=== PATIENT | male | born 1970 | race Caucasian/White ===

== ENCOUNTER 2018-03-31 14:05 | Emergency (ER) | payer OTHER ==
[2018-03-31 14:14] VITALS: BP 144/91
--- NOTE | 2018-03-31 14:25 | UC ---
Eye Complaint HPI - HPI Summary HPI Summary: pt presents with c/o left eye pain, drainage and swelling that began this morning and has worsened over the last few hours. - History of Current Complaint Chief Complaint: UCEye Stated Complaint: EYE ISSUE Time Seen by Provider: 03/31/18 14:18 Hx Obtained From: Patient Onset/Duration: Gradual Onset Severity Initially: Mild Severity Currently: Mild Pain Intensity: 3 Character: Dull Aggravating Factor(s): Light Alleviating Factor(s): Nothing Associated Signs And Symptoms: Positive: Photophobia, Drainage (Clear), Drainage (Purulent), Swelling - Risk Factors Penetrating Injury Risk Factor: Negative Globe Rupture Risk Factors: Negative Acute Glaucoma Risk Factors: Eye Inflammation Optic Artery Occlusion Risk Factors: Negative - Allergies/Home Medications Allergies/Adverse Reactions: Allergies Allergy/AdvReac Type Severity Reaction Status Date / Time shrimp flavor Allergy Difficulty Uncoded 03/31/18 14:07 Swallowing Home Medications: Home Medications Lisinopril 40 mg PO DAILY 03/31/18 [History Confirmed 03/31/18] amLODIPine TAB* [Norvasc 5 mg TAB*] 10 mg PO DAILY 03/31/18 [History Confirmed 03/31/18] PMH/Surg Hx/FS Hx/Imm Hx Previously Healthy: Yes Other History Of: Negative For: Anticoagulant Therapy - Surgical History Surgical History: Yes Surgery Procedure, Year, and Place: RIGHT AC JOINT REPAIR 2009. OSIEL & PINS IN LEFT TIB/FIB 2011. DETACHED RETINA REPAIR LEFT EYE 2011 - ORBITS DONE 05/08/[address] ARRINGTON. LASER EYE SURG - Family History Known Family History: Positive: Cardiac Disease - Social History Occupation: Employed Full-time Lives: With Family Alcohol Use: Occasionally Alcohol Amount: SOCIALLY Substance Use Type: None Smoking Status (MU): Never Smoked Tobacco Have You Smoked in the Last Year: No When Did the Patient Quit Smoking/Using Tobacco: 1989 - Immunization History Most Recent Influenza Vaccination: 2009 Most Recent Tetanus Shot: 2007 Most Recent Pneumonia Vaccination: not use when Review of Systems Constitutional: Negative Skin: Negative Eyes: Drainage, Eye Redness, Photophobia ENT: Negative Respiratory: Negative Cardiovascular: Negative Gastrointestinal: Negative Genitourinary: Negative Motor: Negative Neurovascular: Negative Musculoskeletal: Negative Neurological: Negative Psychological: Negative Is Patient Immunocompromised?: No All Other Systems Reviewed And Are Negative: Yes Physical Exam Triage Information Reviewed: Yes Appearance: Well-Appearing Vital Signs: Initial Vital Signs Temp 98 F 03/31/18 14:07 Pulse 91 03/31/18 14:07 Resp 16 03/31/18 14:07 BP 144/91 03/31/18 14:07 Pulse Ox 100 03/31/18 14:07 Vital Signs Reviewed: Yes Eyes: Positive: Conjunctiva Inflamed, Discharge ENT Exam: Normal Dental Exam: Normal Neck exam: Normal Respiratory: Positive: No respiratory distress Musculoskeletal Exam: Normal Neurological Exam: Normal Psychological Exam: Normal Skin Exam: Normal Eye Complaint Course/Dx - Differential Dx/Diagnosis Differential Diagnosis/HQI/PQRI: Conjunctivitis, Glaucoma Provider Diagnoses: conjunctivitis left eye Discharge - Sign-Out/Discharge Documenting (check all that apply): Patient Departure All imaging exams completed and their final reports reviewed: No Studies - Discharge Plan Condition: Stable Disposition: HOME Prescriptions: Ofloxacin 0.3%(Ophth)(Nf) [Ocuflox OPTH 0.3%(NF)] 3 drop LEFT EYE Q8H 7 Days #1 btl Patient Education Materials: Conjunctivitis (ED) Referrals: Amy Harris MD [Primary Care Provider] - If Needed Sarthak Coreas MD [Medical Doctor] - If Needed Selma Wise MD [Medical Doctor] - If Needed - Billing Disposition and Condition Condition: STABLE Disposition: Home
== END 2018-03-31 14:35 | disposition home or self-care (01) ==
LOC: UCEAST 14:05
DX: H10.9 Unspecified conjunctivitis (principal)
CPT/HCPCS: 99212; G0463

== ENCOUNTER 2019-04-21 15:29 | Emergency (ER) | payer OTHER ==
--- NOTE | 2019-04-21 16:10 | UC ---
Eye Complaint HPI - HPI Summary HPI Summary: Patient is a 49 year old male , who present today to the urgent care with left eye redness and pain since yesterday He has a history of retinal detachment but it does not feel like that. There is no loss of visual field. There is increased tearing of the eye. He does agree that he had been rubbing the eye even before this is started. Does not wear any contact lenses. Does not recall any foreign body entering the eye but he did wash them. His blood pressure is high today, he is to be on the pressure medication but he stopped taking since his blood pressure had been running within normal range at his primary care doctor's office. He denies any chest pain or shortness of breath or any other problems - History of Current Complaint Chief Complaint: UCEye Stated Complaint: LEFT EYE ISSUE Time Seen by Provider: 04/21/19 15:58 Hx Obtained From: Patient Pain Intensity: 6 - Allergies/Home Medications Allergies/Adverse Reactions: Allergies Allergy/AdvReac Type Severity Reaction Status Date / Time shrimp Allergy Difficulty Verified 04/21/19 15:56 Swallowing PMH/Surg Hx/FS Hx/Imm Hx - Additional Past Medical History Additional PMH: Past Medical History : Hypertension, not taking any more medications Past Surgical History: RIGHT AC JOINT REPAIR 2010 OSIEL & PINS IN LEFT TIB/FIB 2012 DETACHED RETINA REPAIR LEFT EYE 2012 - ORBITS DONE 05/08/[address] ARRINGTON LASER EYE SURGure Family History : non contributory Social History : Occasional alcohol, non smoker, no drug use Previously Healthy: Yes Other History Of: Negative For: Anticoagulant Therapy - Surgical History Surgical History: Yes Surgery Procedure, Year, and Place: RIGHT AC JOINT REPAIR 2009. OSIEL & PINS IN LEFT TIB/FIB 2011. DETACHED RETINA REPAIR LEFT EYE 2012 - ORBITS DONE 05/08/[address] ARRINGTON. LASER EYE SURG - Family History Known Family History: Positive: Cardiac Disease, Non-Contributory - Social History Alcohol Use: Occasionally Alcohol Amount: SOCIALLY Substance Use Type: None Smoking Status (MU): Never Smoked Tobacco Have You Smoked in the Last Year: No When Did the Patient Quit Smoking/Using Tobacco: 1989 - Immunization History Most Recent Influenza Vaccination: 2009 Most Recent Tetanus Shot: 2019 Most Recent Pneumonia Vaccination: not use when Review of Systems All Other Systems Reviewed And Are Negative: Yes Constitutional: Positive: Negative Skin: Positive: Negative Eyes: Positive: Drainage - clear, Eye Redness ENT: Positive: Negative Respiratory: Positive: Negative Cardiovascular: Positive: Negative Gastrointestinal: Positive: Negative Genitourinary: Positive: Negative Motor: Positive: Negative Neurovascular: Positive: Negative Musculoskeletal: Positive: Negative Neurological: Positive: Negative Psychological: Positive: Negative Is Patient Immunocompromised?: No Physical Exam - Summary Physical Exam Summary: Vital Signs Reviewed: Yes A+Ox3, no distress Eyes: Left eye: Conjunctival erythema is noted with clear watery discharge. There is edema of the eyelids with mild redness. Extraocular movements and PERRLA intact. Some pain with movements. Reexamination after tetracaine and fluorescein stain: There is a linear corneal abrasion noted on the center of the cornea ENT: Hearing grossly normal neck: supple Respiratory: Positive: No respiratory distress, No accessory muscle use Cardiovascular: skin color reflect adequate perfusion Musculoskeletal Exam: CLAYTON x 4 without difficulty Neurological: Positive: Alert, ambulatory without difficulty Psychological: Positive: Normal Response To Family Skin: Positive: no rash, no ecchymosis Triage Information Reviewed: Yes Vital Signs: Initial Vital Signs Temp 97.8 F 04/21/19 15:51 Pulse 75 04/21/19 15:51 Resp 12 04/21/19 15:51 BP 156/110 04/21/19 15:51 Pulse Ox 99 04/21/19 15:51 Vital Signs Reviewed: Yes Eye Complaint Course/Dx - Course Course Of Treatment: During the visit today, Reexamination after tetracaine and fluorescein stain: There is a linear corneal abrasion noted on the center of the cornea Suspect there was a foreign body that caused corneal abrasion but no foreign body was identified on examination today. Because of the swelling of the eyelids, suspect early periorbital cellulitis and plan to cover that with oral antibiotics. We discussed the findings and further plan. I will prescribe the medication to the pharmacy . We also discussed his high blood pressure in the clinic today. He has a history of hypertension but stop taking the medications since he was having normal pressure readings at her primary care doctor's office. He denies he is currently asymptomatic and repeat blood pressure was 160/110. We discussed that he will follow-up with his primary care doctor for blood pressure recheck and possibly starting medication again. Patient expressed understanding . - Differential Dx/Diagnosis Provider Diagnosis: Corneal abrasion, Periorbital cellulitis of left eye, Injury of conjunctiva and corneal abrasion of left eye w/o FB Discharge ED - Sign-Out/Discharge Documenting (check all that apply): Patient Departure All imaging exams completed and their final reports reviewed: No Studies - Discharge Plan Condition: Stable Disposition: HOME Prescriptions: Ciprofloxacin 0.3% OPTH.LAUREN* [Cipro 0.3% Opth*] 1 drop LEFT EYE Q6H 5 Days #1 btl Sulfamethox/Trimethoprim DS* [Bactrim DS 800/160 TAB*] 1 tab PO BID 10 Days #20 tab Patient Education Materials: Corneal Abrasion (ED), Periorbital Cellulitis in Adults (ED) Referrals: Amy Harris MD [Primary Care Provider] - 1 Week Martin Patiño MD [Medical Doctor] - 2 Days Additional Instructions: Please start taking the medication and the eyedrops as prescribed to the pharmacy . Follow up with ophthalmology in 2 days if no improvement. Your blood pressure slightly high in Urgent care today , plan follow up with PCP for better control within a week Return to Urgent care / ER if symptoms get worse. - Billing Disposition and Condition Condition: STABLE Disposition: Home
[2019-04-21] MEDS ORDERED: Tetracaine 0.5% OPTH.SOL 4 ML* 1 DROP BTL LEFT EYE ONE (16:14)
[2019-04-21] MEDS ORDERED: Fluorescein Sodium TOPICAL* 1 MG TEST STRIP OPHTHALMIC ONE (16:15)
[2019-04-21 16:32] VITALS: BP 161/100
== END 2019-04-21 16:48 | disposition home or self-care (01) ==
LOC: UCEAST 15:29
DX: S05.02XA Injury of conjunctiva and corneal abrasion without foreign body, left eye, initial encounter (principal); X58.XXXA Exposure to other specified factors, initial encounter; Y92.9 Unspecified place or not applicable; L03.213 Periorbital cellulitis; I10 Essential (primary) hypertension
CPT/HCPCS: 99212; A9270-GY; G0463

== ENCOUNTER 2019-06-30 08:33 | Emergency (ER) | payer OTHER ==
[2019-06-30 08:46] VITALS: BP 163/95
--- NOTE | 2019-06-30 09:01 | UC ---
Eye Complaint HPI - HPI Summary HPI Summary: Right eye injured monday night from rolling into bedside table. Patient stating today upon waking large amount of dried discharge noted to eye. - History of Current Complaint Chief Complaint: UCEye Stated Complaint: eye complaint Time Seen by Provider: 06/30/19 08:37 Hx Obtained From: Patient Onset/Duration: Sudden Onset, Lasting Days Timing: Constant Severity Initially: Moderate Severity Currently: None Pain Intensity: 0 Location of Injury: Conjunctiva, Eye Lid (lower), Eye Lid (upper), Periorbital, Sclera Associated Signs And Symptoms: Positive: Drainage (Purulent), Swelling - Allergies/Home Medications Allergies/Adverse Reactions: Allergies Allergy/AdvReac Type Severity Reaction Status Date / Time shrimp Allergy Difficulty Verified 04/21/19 15:56 Swallowing PMH/Surg Hx/FS Hx/Imm Hx Previously Healthy: Yes Other History Of: Negative For: Anticoagulant Therapy - Surgical History Surgical History: Yes Surgery Procedure, Year, and Place: RIGHT AC JOINT REPAIR 2009. OSIEL & PINS IN LEFT TIB/FIB 2011. DETACHED RETINA REPAIR LEFT EYE 2011 - ORBITS DONE 05/08/[address] ARRINGTON. LASER EYE SURG - Family History Known Family History: Positive: Cardiac Disease, Non-Contributory - Social History Alcohol Use: Occasionally Alcohol Amount: SOCIALLY Substance Use Type: None Smoking Status (MU): Never Smoked Tobacco Have You Smoked in the Last Year: No When Did the Patient Quit Smoking/Using Tobacco: 1989 - Immunization History Most Recent Influenza Vaccination: 2009 Most Recent Tetanus Shot: 2019 Most Recent Pneumonia Vaccination: not use when Review of Systems All Other Systems Reviewed And Are Negative: Yes Eyes: Positive: Drainage, Eye Redness Is Patient Immunocompromised?: No Physical Exam Triage Information Reviewed: Yes Appearance: Well-Appearing, Well-Nourished, Pain Distress Vital Signs: Initial Vital Signs Temp 97.5 F 06/30/19 08:38 Pulse 81 06/30/19 08:38 Resp 16 06/30/19 08:38 BP 163/95 06/30/19 08:38 Pulse Ox 99 06/30/19 08:38 Vital Signs Reviewed: Yes Eyes: Positive: Discharge, Other: - subconjunctival hemmoraghe noted, ecchymosis and swelling of the medial upper and lower lids, small cut to the bridge of nose, no hyphema, PERRLA vision is unchanged, denies blurryness, feild of vision is intact Eye Complaint Course/Dx - Course Course Of Treatment: hx obtained, exam performed ,meds reviewed, treated for eye drainage. - Differential Dx/Diagnosis Differential Diagnosis/HQI/PQRI: Conjunctivitis, Corneal Abrasion, Hyphema, Penetrating Injury, Periorbital Cellulitis Provider Diagnosis: Subconjunctival hemorrhage of right eye, Conjunctivitis Discharge ED - Sign-Out/Discharge Documenting (check all that apply): Patient Departure All imaging exams completed and their final reports reviewed: No Studies - Discharge Plan Condition: Stable Disposition: HOME Prescriptions: Erythromycin OPHTH.OINT* [Ilotycin OPHTH.OINT*] 1 applic RIGHT EYE TID #1 tube Patient Education Materials: Subconjunctival Hemorrhage (ED) Referrals: Amy Harris MD [Primary Care Provider] - Additional Instructions: 1. use the cream as prescribed. 2. Ice as needed 3. FOllow up with your eye doctor if you notice any vision changes: blurry vision, floaters or loss of vision - Billing Disposition and Condition Condition: STABLE Disposition: Home
== END 2019-06-30 09:05 | disposition home or self-care (01) ==
LOC: UCEAST 08:33
DX: H11.31 Conjunctival hemorrhage, right eye (principal); H10.9 Unspecified conjunctivitis; S01.21XA Laceration without foreign body of nose, initial encounter; Z91.013 Allergy to seafood; X58.XXXA Exposure to other specified factors, initial encounter; Y92.9 Unspecified place or not applicable
CPT/HCPCS: 99212; G0463